=== PATIENT | female | born 1965 | race African-American/Black ===

== ENCOUNTER 2018-10-14 06:37 | Emergency (ER) | payer OTHER ==
[2018-10-14] MEDS ORDERED: traMADol HCl 50 MG TAB ONE (06:56)
[2018-10-14] MEDS ORDERED: hydrOXYzine 25 MG TAB ONE (06:56)
[2018-10-14] MEDS ORDERED: Famotidine 20 MG TAB ONE (06:56)
[2018-10-14] MEDS ORDERED: Ibuprofen 800 MG TAB ONE (07:38)
== END 2018-10-14 08:02 | disposition home or self-care (01) ==
LOC: BURERS 06:37
DX: T63.2X1A Toxic effect of venom of scorpion, accidental (unintentional), initial encounter (principal); E11.9 Type 2 diabetes mellitus without complications; Z79.4 Long term (current) use of insulin
CPT/HCPCS: 99282

== ENCOUNTER 2018-12-18 21:26 | Emergency (ER) | payer OTHER ==
[2018-12-18] MEDS ORDERED: Dextrose 50% Abboject 50 ML SYRINGE ONE (21:41)
[2018-12-18 22:26] LABS: Band 2 % (5-11); Hemoglobin 11.5 g/dL (12.0-16.0); Hypochromia SLIGHT = 6-15 cells (100X) (0-5/hpf); Lymphocytes 8 % (21-51); MDiff Complete? YES; Mean Corpuscular HGB CONC 30.5 g/dL (32.0-36.0); Mean Corpuscular Hemoglobin 22.4 pg (27.0-31.0); Mean Corpuscular Volume 73.5 fL (78.0-98.0); Mean Platelet Volume 8.7 fL (7.4-10.4); Microcytosis SLIGHT = 6-15 cells (100X) (0-5/hpf); Monocytes 6 % (0-10); Neutrophil 84 % (42-75); Platelet Count 215 thou/uL (130-400); Platelet Morphology Comment Appears Adequate; RBC Distribution Width 13.2 % (11.5-14.5); Red Blood Cell (RBC) Count 5.11 mill/uL (4.20-5.40); White Blood Cell (WBC) Count 14.2 thou/uL (4.8-10.8)
[2018-12-18 22:28] LABS: ALT (SGPT) 23 U/L (8-55); AST (SGOT) 20 U/L (5-34); Albumin 4.3 g/dL (3.5-5.0); Alkaline Phosphatase 59 U/L (40-150); Anion Gap 16 mmol/L (10-20); BUN (Urea Nitrogen) 26 mg/dL (9.8-20.1); Bilirubin, Total 0.3 mg/dL (0.2-1.2); Calc. Creatinine Clearance 0 mL/min (70-130); Calcium 10.1 mg/dL (7.8-10.44); Carbon Dioxide 23 mmol/L (22-29); Chloride 101 mmol/L (98-107); Estimated GFR-MDRD 87; Globulin 4.2 g/dL (2.4-3.5); Potassium 3.2 mmol/L (3.5-5.1); Protein, Total 8.5 g/dL (6.0-8.3); Sodium 137 mmol/L (136-145)
[2018-12-18 22:30] LABS: Glucose 48 mg/dL (70-105)
[2018-12-18] MEDS ORDERED: Acetaminophen 500 MG TAB ONE (22:49)
[2018-12-18 23:34] LABS: Bilirubin Negative (Negative); Blood, Urine Negative (Negative); Clarity Slightly Cloudy (Clear); Glucose, Urine (Dipstick) 100 mg/dL (Negative); Leukocyte Small (Negative); Nitrite Negative (Negative); Protein, Urine (Dipstick) Negative (Neg-Trace); Specific Gravity, Urine 1.015 (1.005-1.030); Urobilinogen 0.2 mg/dL (0.2-1.0)
[2018-12-18 23:42] LABS: Bacteria/HPF 2+ HPF (None Seen); RBC/HPF 0-3 HPF (0-3); Squamous Epithelial 0-3 HPF (0-3)
[2018-12-18] MEDS ORDERED: cefTRIAXone\\ROCEPHIN 2 GM VIAL ONE (23:45)
== END 2018-12-18 23:57 | disposition home or self-care (01) ==
LOC: BURERS 21:26
DX: E11.65 Type 2 diabetes mellitus with hyperglycemia (principal); N39.0 Urinary tract infection, site not specified; Z91.11 Patient's noncompliance with dietary regimen; Z79.4 Long term (current) use of insulin
CPT/HCPCS: 36416; 80053; 81003; 81015; 83605; 85025; 87040; 87077; 87086; 87186; 87804; 96361; 96374; 96375; J0696